=== PATIENT | male | born 1945 | race Caucasian/White ===

== ENCOUNTER 2019-12-26 17:27 | Inpatient (IN) | payer MEDICARE, OTHER ==
[~2019-12-26] VITALS: Ht 193 cm; Wt 108.9 kg
--- NOTE | 2019-12-26 13:00 | NUR ---
GOT REPORT FROM [facility] LEXIS RN FROM ICU.
--- NOTE | 2019-12-26 17:40 | NUR ---
AWAITING FOR DOCTOR NEW ORDERS.
--- NOTE | 2019-12-26 17:40 | NUR ---
PATIENT ARRIVED VIA GURNEY FROM AMBULANCE. PATIENT IS A/O X 4 ABLE TO AMBULATE TO THE BED. HEPARIN DRIP CONTINUE ON RIGHT CENTRAL LINE INTERNAL JUGULAR VEIN. VITALS ARE WITHIN NORMAL LIMITS. ORIENTED PATIENT TO ROOM. BED IS LOW POSITION, BED IS LOCKED SIDE RAILS UP X 2 FOR SAFETY. CALL LIGHT WITHIN REACH. BELONGING LIST WENT OVER IT WITH THE PATIENT AND SIGNED. ADMISSION WOUND PICTURES TAKEN. WILL CONTINUE TO MONITOR.
[2019-12-26] MEDS ORDERED: VARI50VI IM (18:40)
[2019-12-26] MEDS ORDERED: ERGO500014 PO (18:40)
[2019-12-26] MEDS ORDERED: SPIR25TA6 PO (18:40)
[2019-12-26] MEDS ORDERED: TAMS-12 PO (18:40)
[2019-12-26] MEDS ORDERED: UMEC1BLS IH (18:40)
[2019-12-26] MEDS ORDERED: COLE1TAB2 PO (18:40)
[2019-12-26] MEDS ORDERED: POTA10TA10 PO (18:40)
[2019-12-26] MEDS ORDERED: ONDA4TAB5 PO (18:40)
[2019-12-26] MEDS ORDERED: MUPI22OI7 TD (18:40)
[2019-12-26] MEDS ORDERED: BUDE3CAP8 PO (18:40)
[2019-12-26] MEDS ORDERED: GABA-532 PO (18:40)
[2019-12-26] MEDS ORDERED: ACET-868 PO (18:40)
[2019-12-26] MEDS ORDERED: ASPI-1420 PO (18:40)
[2019-12-26] MEDS ORDERED: LOPE2CAP PO (18:40)
[2019-12-26] MEDS ORDERED: ATOR40TA PO (18:40)
[2019-12-26] MEDS ORDERED: MESA500C PO (18:40)
[2019-12-26 20:00] VITALS: BP 144/75
--- NOTE | 2019-12-26 20:30 | NUR ---
PATIENT IS AWAKE A/O X 4 WITH NO SIGNS OF DISTRESS ON 2L OF NASAL CANNULA. TELEMONITOR. RIGHT CENTRAL INTERNAL JUGULAR VEIN INTACT RUNNING HEPARIN DRIP AT 1200 UNITS/HR. SAFETY MEASURES ARE APPLIED, BED IS IN LOW POSITION POSITION BED IS LOCKED, WITH SIDE RAILS UP X 2 FOR SAFETY. CALL LIGHT WITHIN REACH. WILL ENDORSE TO THE NEXT DRY SANDER.
--- NOTE | 2019-12-26 21:03 | NUR ---
RN NOTES PATIENT PULLED OUT HIS PERIPHERAL IV LINE ON RIGHT FOREARM. CONNECTED HEPARIN DRIP ON HIS RIGHT INTERNAL JUGULAR CENTRAL LINE, INTACT AND PATENT. MONITOR AND OBSERVED FOR ANY SIGNS OF ACTIVE BLEEDING.
--- NOTE | 2019-12-26 23:31 | NUR ---
MECHANIC CHIEF NOTES CALLED AND INFORMED CHANTEL MO DNP FOR ORDERS, PATIENT IS ON CONTINUOUS HEPARIN DRIP AT 1200 UNITS/HR. OBTAINED ORDER FOR STAT EKG. AWAITING FOR OTHER NEW ORDERS. HOSPITALIST CHANTEL MADE AWARE.
[2019-12-27] VITALS (11 sets, daily range): BP systolic 106–148; BP diastolic 61–78
[2019-12-27] MEDS: HEPARIN INFUSION/D5W 500 ML IV PRN ×3 (01:11→23:18)
--- NOTE | 2019-12-27 04:12 | NUR ---
RN NOTES CALLED AND SPOKE WITH CHANTEL MO DNP REGARDING ORDERS. STILL AWAITING FOR ORDERS.
[2019-12-27] MEDS ORDERED: ONDANSETRON HCL/PF 4 MG/2 ML VIAL IVP PRN (04:30)
[2019-12-27] MEDS ORDERED: ZOLPIDEM TARTRATE 5 MG TABLET PO PRN (04:30)
[2019-12-27] MEDS ORDERED: ACETAMINOPHEN 325 MG TABLET PO PRN (04:30)
[2019-12-27] MEDS ORDERED: MORPHINE SULFATE INJ 2 MG/ML DISP.SYRIN IV PRN (04:30)
[2019-12-27] MEDS ORDERED: Z GUARD REMEDY 2 OZ OINT TP PRN (04:30)
[2019-12-27 06:42] LABS: BASOPHILS % (AUTO) 0.3 % (0.0-2.0); EOSINOPHILS % (AUTO) 2.3 % (0.0-6.0); HEMATOCRIT 36 % (39-51); HEMOGLOBIN 11.9 g/dL (13.5-17.5); LYMPHOCYTES % (AUTO) 17.2 % (20.0-44.0); MEAN CORPUSCULAR HGB CONC 33 g/dl (31.0-36.0); MEAN CORPUSCULAR VOLUME 100 fL (80-96); MONOCYTES # (AUTO) 0.4 /CMM (0.1-1.30); MONOCYTES % (AUTO) 6.7 % (2.0-12.0); NEUTROPHILS # (AUTO) 4.4 /CMM (1.8-8.9); NEUTROPHILS % (AUTO) 73.5 % (43.0-81.0); PLATELET COUNT (AUTO) 200 /CMM (150-450); WHITE BLOOD COUNT (AUTO) 5.9 K/uL (4.3-11.0)
[2019-12-27 06:49] LABS: ALBUMIN 2.6 g/dL (3.4-5.0); BILIRUBIN,TOTAL 0.2 mg/dL (0.2-1.0); CALCIUM, SERUM 8.4 mg/dL (8.5-10.1); CREATININE 1.2 mg/dL (0.6-1.3); MAGNESIUM 1.7 mg/dL (1.8-2.4); POTASSIUM 4.5 mmol/L (3.5-5.1)
[2019-12-27 06:59] LABS: THYROID STIMULATING HORMONE 1.243 uIU/mL (0.358-3.74)
--- NOTE | 2019-12-27 07:39 | NUR ---
TELE/RN NOTES RECEIVED PATIENT AWAKE ALERT AND ORIENTED X4. PATIENT DENIES PAIN AT THIS TIME. NO RESPIRATORY DISTRESS NOTED. PATIENT IS FOR CARDIAC CATH AT 9 AM. PATIENT IN TELE MONITOR SR 75BPM. WILL CONTINUE TO MONITOR.
--- NOTE | 2019-12-27 07:48 | NUR ---
FOOT WORKER NOTES ALL NEEDS ATTENDED AND MET, ABLE TO REST AND SLEPT AT INTERVALS, ON CONTINUOUS HEPARIN DRIP @1200 UNITS/HR. HOLD AT 0700. SPOKE WITH [facility] ( [facility]) PATIENT IS FOR CARDIAC CATHETERIZATION/ CORONARY ANGIOGRAM. PLACED ON NPO STARTING 0500. CONSENT SIGNED, ENDORSED TO AM NURSE FOR CONTINUOUS CARE AND MANAGEMENT.
[2019-12-27] MEDS ORDERED: IV NS 0.9% 1,000 ML ONE (08:18)
[2019-12-27] MEDS ORDERED: NITROGLYCERIN ICAR 1,000 MCG/10 ML VIAL ICAR ONE (08:19)
[2019-12-27] MEDS ORDERED: IODIXANOL 150 ML IV ONE (08:19)
[2019-12-27] MEDS ORDERED: HEPARIN SODIUM, PORCINE 1,000 UNIT/ML VIAL ONE (08:19)
[2019-12-27] MEDS ORDERED: VERAPAMIL HCL IV 5 MG/2 ML VIAL ONE (08:19)
--- NOTE | 2019-12-27 08:25 | NUR ---
TELE/RN NOTES PATIENT IS INDUSTRIAL DESIGNER BY HYDRAULIC LIFT DRIVER. PATIENT IS AWAKE ALERT AND ORIENTED X 4. PATIENT DENIES PAIN. NO RESPIRATORY DISTRESS NOTED. V/S TAKEN BP 129/86 P 81 RR 20 T 98.2 SAO2 98%. PATIENT WITH CONSENT SIGN.
[2019-12-27] MEDS ORDERED: IV NS 0.9% 50 ML IV ONE (08:43)
[2019-12-27] MEDS ORDERED: LIDOCAINE HCL/PF 1% 30 ML SDV ONE (08:59)
[2019-12-27] MEDS ORDERED: MIDAZOLAM HCL 2 MG/2ML VIAL ONE (09:02)
[2019-12-27] MEDS ORDERED: FENTANYL PF 100MCG/2ML AMPUL ONE (09:02)
[2019-12-27] MEDS ORDERED: IV NS 0.9% 500 ML IV ONE (10:00)
--- NOTE | 2019-12-27 10:29 | NUR ---
TEL/RN NOTES PATIENT REFUSED FOR EKG EXPLAINED THE RISK AND BENEFITS, PATIENT VERBALIZED " HE DOESN'T NEED IT". MD IS AWARE. WILL CONTINUE TO MONITOR. Addendum: 12/27/19 at 1031 by MARLENE TREJO RN ERROR
--- NOTE | 2019-12-27 10:41 | NUR ---
0931 Started pt recovery in Railway Signal Operator Room. PT AAOx4; denies CP or SOB; R Radial TR band intact; no bleeding at this time 1032 3 ml air released from TR band; no bleeding at this time Addendum: 12/27/19 at 1114 by JOESPH JIMENEZ RN TR band released, No bleeding, pressure dressing applied. report given to Cheri JONES; romaine to 310-1 /acls
[2019-12-27] MEDS: Magnesium 1GM/D5W 100ML PREMIX 100 ML IV SCH ×2 (11:29→12:40)
--- NOTE | 2019-12-27 11:41 | NUR ---
TELE/RN NOTES PATIENT CAME BACK FROM FIREARMS INSTRUCTOR, PATIENT IS AWAKE ALERT AND ORIENTED X4. PATIENT COMPLAINED OF LITTLE BIT DIZZY. RECEIVED REPORT FROM JOESPH CONTINUE HEPARIN DRIP AT 1215 AND DISCONTINUE THE NS600 ML AT 75ML/HR ONCE IT FINISH. VITAL SIGN TAKEN AND RECORDED BP 144/72 T 97.9 P 67 SAO2 96%. WILL CONTINUE TO MONITOR.
[2019-12-27] MEDS: ASPIRIN 81 MG TAB.CHEW PO SCH (11:50)
[2019-12-27] MEDS: METOPROLOL TARTRATE 25 MG TABLET PO SCH ×2 (11:51→21:49)
[2019-12-27] MEDS ORDERED: NEUTRA PHOS 1 POWD.PACKET PO ONE (13:30)
[2019-12-27] MEDS ORDERED: HEPARIN SODIUM, PORCINE 5000 UNITS/1 ML VIAL IV ONE (14:30)
--- NOTE | 2019-12-27 15:13 | NUR ---
TELE/RN NOTES APTT 30.3 TIME 17, CURRENTLY ON HEPARIN DRIP 1200 UNITS, GIVEN BOLUS 6000 UNITS PLUS INCREASE RATE BY 300 UNITS PER HOUR = HEPARIN DRIP 1500 UNITS/HOUR, PER HOSPITAL PROTOCOL. NEXT APTT AT 2100.
--- NOTE | 2019-12-27 17:42 | NUR ---
TELE/RN NOTES PHILLY FORD (ORACLE HRMS DEVELOPER) IS AWARE TO RECONCILE THE HOME MEDICATION.
[2019-12-27] MEDS: MESALAMINE 400 MG CAP PO SCH (18:30)
--- NOTE | 2019-12-27 19:21 | NUR ---
TELE/RN CLOSING NOTES PATIENT IS AWAKE, ALERT AND ORIENTED X4. PATIENT DENIES PAIN AT THIS TIME. PATIENT IN ROOM AIR. PATIENT IN NO RESPIRATORY DISTRESS NOTED AT THIS TIME. TELE MONITOR IN PLACE READS AT SR WITH BBB 63BPMBPM. IV ACCESS AT RIGHT INTERNAL JUGULAR CENTRAL LINE WITH CONTINUOS IV HEPARIN DRIP AT 1500ML/HR ON AND INFUSING WELL. ESCALATOR MECHANIC DONE TODAY. SEEN AND EXAMINED BY MD WITH ORDERS MADE AND CARRIED OUT. ALL DUE MEDICATION WAS ORDER. SAFETY PRECAUTION IN PLACED. BED IN LOWEST POSITION AND LOCKED. SIDE RAILS UP X2. CALL LIGHT LIGHT IS WITHIN REACH. WILL ENDORSED TO FRACTIONATING STILL OPERATOR FOR KENYETTA..
--- NOTE | 2019-12-27 19:51 | NUR ---
AUTO HAULER: Received report from delia santana at 1915. Pt a/o x4,calm and cooperative, pleasant, denies any chest dionna or discomfort at this time. Received on heparin drip at 1500 u/hr equivalent to 30ml/hr aptt 30.3, following acs protocol. S/P left heart cath 12/27/2019, right radial area covered with pressured dressing, dressing c/d/i, no active bleeding noted. pt denies any pain or discomfort, denies any tingling or numbness on area. pt able to move and wiggle arms and hands, good capillary refill noted, palpable and intact radial pulses. Discussed plan of care, awaiting for Dr Gotti to schedule CABG. Right IJ, tlc patent and flushing well, good blood return noted, easily flushes well with normal saline. noted dry blood on dressing, no active bleeding noted. Safety precautions for fall initiated, call light in reach, will continue monitoring pt.
--- NOTE | 2019-12-27 20:12 | NUR ---
RN notes: PT on sinus rhythm with 1st degree avblock and bbb hr 60
--- NOTE | 2019-12-27 21:03 | NUR ---
rn notes: phleb came to draw blood, sched for aptt at 2100.
--- NOTE | 2019-12-27 21:38 | NUR ---
RN NOTES/APTT: APTT PENDING RESULT.
[2019-12-27] MEDS: ATORVASTATIN 40 MG TABLET PO SCH (21:48)
[2019-12-27] MEDS: TAMSULOSIN 0.4 MG CAP.SR.24H PO SCH (21:48)
--- NOTE | 2019-12-27 21:50 | NUR ---
RN NOTES/LOPRESSOR: DR MO IN THE UNIT, RELAYED PT'S VS RESULT, S/P HEART CATH 12/26, PER MD OKAY TO ADMINISTER MEDICATION/LOPRESSOR ALTHOUGH HR 58. SHIRT OPERATOR AWARE.
--- NOTE | 2019-12-27 21:54 | NUR ---
RN NOTES/APTT: still pending result of aptt.
--- NOTE | 2019-12-27 22:18 | NUR ---
RN NOTES/APTT CRITICAL LAB: RECEIVED CRITICAL LAB RESULT FOR PTT REPORTED BY FABRICIO FROM LAB, APTT 113.8, READ BACK AND VERIFIED. PER HEPARIN PROTOCOL TO HOLD INFUSION FOR 60MINS AND DECREASE RATE BY 300 UNITS/HR. THEN NEXT PTT DRAW AFTER 6HRS. CURRENT RATE IS 1500 U/HR. 1500 UNITS/HR - 300 UNITS/HR EQUALS 1200 U/HR, WHICH IS EQUIVALENT TO 24 ML/HR. HEPARIN DRIP INFUSION HELD AT 2210, WILL RESTART AT 2310 AT NEW RATE OF 1200 U/HR. NEXT PTT DRAW IS 12/28/[address] MO NOTIFIED OF CRITICAL LAB RESULT FOR APTT, ORDER TO JUST CONTINUE FOLLOWING HEPARIN ACS PROTOCOL. RAC SPECIALIST AWARE.
--- NOTE | 2019-12-27 23:18 | NUR ---
rn notes/heaprin drip restarted: Heparin drip re-started at 2310 following acs heparin protocol, new rate 1200 u/hr equivalent is 24 ml/hr. APTT 113.8. no s/s of active bleeding noted. Cosigned/verified with another rn yanna gutierrez
[2019-12-28] VITALS (7 sets, daily range): BP systolic 96–124; BP diastolic 55–68
[2019-12-28] MEDS: HEPARIN INFUSION/D5W 500 ML IV PRN (05:09)
--- NOTE | 2019-12-28 05:10 | NUR ---
rn notes: escalation engineer currently in the unit to draw ptt.
--- NOTE | 2019-12-28 05:20 | NUR ---
rn notes: loom operator finished drawing blood for pt inr, ptt.
--- NOTE | 2019-12-28 06:17 | NUR ---
RN NOTES/PTT: PENDING PTT RESULT.
[2019-12-28 06:33] LABS: BASOPHILS % (AUTO) 0.6 % (0.0-2.0); EOSINOPHILS % (AUTO) 5.1 % (0.0-6.0); HEMATOCRIT 37 % (39-51); HEMOGLOBIN 12.4 g/dL (13.5-17.5); LYMPHOCYTES # (AUTO) 1.8 /CMM (0.8-4.8); LYMPHOCYTES % (AUTO) 32.6 % (20.0-44.0); MEAN CORPUSCULAR HGB CONC 33 g/dl (31.0-36.0); MEAN CORPUSCULAR VOLUME 100 fL (80-96); MONOCYTES # (AUTO) 0.5 /CMM (0.1-1.30); MONOCYTES % (AUTO) 8.2 % (2.0-12.0); NEUTROPHILS % (AUTO) 53.5 % (43.0-81.0); PLATELET COUNT (AUTO) 212 /CMM (150-450); RED BLOOD CELL COUNT(AUTO) 3.75 MIL/uL (4.5-6.0); WHITE BLOOD COUNT (AUTO) 5.6 K/uL (4.3-11.0)
[2019-12-28 06:42] LABS: CALCIUM, SERUM 8.8 mg/dL (8.5-10.1); CREATININE 1.1 mg/dL (0.6-1.3); MAGNESIUM 1.9 mg/dL (1.8-2.4); PHOSPHORUS 2.9 mg/dL (2.5-4.9); POTASSIUM 4.1 mmol/L (3.5-5.1)
--- NOTE | 2019-12-28 06:45 | NUR ---
rn notes: awaiting ptt result.
--- NOTE | 2019-12-28 07:18 | NUR ---
End of shift report: Pt remains cooperative, calm, denies any chest pain or discomfort throughout the shift. No active bleeding noted. Right ij tlc remains patent and flushing well, infusing with heparin drip at 1200 u/hr, still awaiting for next ptt result. No episode of loose bm happened throughout the shift. Remains sinus bradycardia with bbb hr 55. PLAN OF CARE: Awaiting for Dr Gotti to evaluate pt for plan for CABG. Vs remains stable, needs attended, safety precautions for fall remains engaged, call light in reach, will endorse to day rn for continuity of care.
--- NOTE | 2019-12-28 07:25 | NUR ---
SEASONING MIXER NOTES PATIENT RECEIVED IN BED SLEEPING, ON ROOM AIR WITH NO SIGNS OF RESPIRATORY DISTRESS PRESENT AT THIS TIME, WITH EVEN NON-LABORED BREATHING, AND NO SOB NOTED. PATIENT ON DRAPERY INSPECTOR, SINUS HELENE 54. PATIENT SKIN WARM AND DRY. RIGHT IJ IV ACCESS INTACT AND PATENT CURRENTLY INFUSING 1200U/hr of HEPARIN DRIP. PATIENT PRESENTS WITH NO SIGNS OF PAIN OR DISCOMFORT AT THIS TIME. SAFETY PRECAUTIONS IMPLEMENTED WITH BED LOCKED, BED IN THE LOWEST POSITION, BILATERAL SIDE RAILS UP, BED ALARM ON, AND CALL LIGHT WITHIN EASY REACH OF THE PATIENT. WILL CONTINUE TO MONITOR PATIENT.
[2019-12-28] MEDS: GABAPENTIN 100 MG CAPSULE PO SCH ×2 (08:20→16:18)
[2019-12-28] MEDS: FLUTICASONE/VILANTEROL 1 EACH BLST.W.DEV IH SCH (08:20)
[2019-12-28] MEDS: METOPROLOL TARTRATE 25 MG TABLET PO SCH ×2 (08:21→21:26)
[2019-12-28] MEDS: MESALAMINE 400 MG CAP PO SCH ×3 (08:21→16:19)
[2019-12-28] MEDS: ASPIRIN 81 MG TAB.CHEW PO SCH (08:21)
[2019-12-28] MEDS: COLESTIPOL 1 GM PO SCH ×2 (09:41→16:18)
--- NOTE | 2019-12-28 18:37 | NUR ---
CONFIGURATION TECHNICIAN NOTES PATIENT IN BED RESTING COMFORTABLY AND WATCHING TV. ALERT AND ORIENTED X 4. ON ROOM AIR WITH NO SIGNS OF RESPIRATORY DISTRESS, WITH NON-LABORED EVEN BREATHING. PATIENT SKIN WARM AND DRY TO TOUCH. ON WET PROCESS OPERATOR SINUS RHYTHM 78. IV ACCESS INTACT AND PATENT CURRENTLY INFUSING HEPARIN DRIP AT 1200UNITS/HR. PATIENT SKIN KEPT CLEAN AND DRY. MET ALL OF PATIENT'S NEEDS. PATIENT PRESENTS WITH NO SIGNS OF PAIN OR DISCOMFORT. SAFETY PRECAUTIONS IMPLEMENTED WITH BED LOCKED, BED IN THE LOWEST POSITION, BILATERAL SIDE RAILS UP, AND CALL LIGHT WITHIN EASY REACH OF THE PATIENT. WILL ENDORSE PLAN OF CARE TO UPCOMING NURSE.
--- NOTE | 2019-12-28 19:59 | NUR ---
TELE/RN OPENING NOTE Patient awake in bed, a/o x4, ambulatory. Face is symmetrical, tongue midline. No tracheal deviation. No JVD. Patient on room air, breath sounds even, clear, unlabored. No respiratory distress or SOB noted. Tele monitor NSR in the 70s. Skin is warm, pink, dry appropriate for ethnicity. IV RIJ patent and intact, running 1200 units/hr. No signs of redness or infiltration. Bowel sounds normoactive in all quadrants. Abdomen round, soft, non-tender. Patient is continent, void via urinal. Bed in low position, wheels locked, side rails up x2, call light within reach.
[2019-12-28] MEDS: ATORVASTATIN 40 MG TABLET PO SCH (21:25)
[2019-12-28] MEDS: TAMSULOSIN 0.4 MG CAP.SR.24H PO SCH (21:26)
[2019-12-29] VITALS (8 sets, daily range): BP systolic 112–147; BP diastolic 58–75
[2019-12-29] MEDS: HEPARIN INFUSION/D5W 500 ML IV PRN (04:01)
--- NOTE | 2019-12-29 06:48 | NUR ---
TELE/RN CLOSING NOTE Patient awake in bed, a/o x4, ambulatory. Patient on room air, breath sounds even, clear, unlabored. No respiratory distress or SOB noted. Tele monitor NSR in the 60s. Skin is warm, pink, dry appropriate for ethnicity. IV RIJ patent and intact, running heparin 1200 units/hr. No signs of redness or infiltration. Bowel sounds normoactive in all quadrants. Abdomen round, soft, non-tender. Patient is continent, void via urinal, 850 ml clear, yellow, urine. Bed in low position, wheels locked, side rails up x2, call light within reach.
[2019-12-29 06:56] LABS: BASOPHILS % (AUTO) 0.4 % (0.0-2.0); EOSINOPHILS % (AUTO) 3.7 % (0.0-6.0); HEMATOCRIT 37 % (39-51); HEMOGLOBIN 12.1 g/dL (13.5-17.5); LYMPHOCYTES # (AUTO) 1.8 /CMM (0.8-4.8); LYMPHOCYTES % (AUTO) 29.6 % (20.0-44.0); MEAN CORPUSCULAR HGB CONC 33 g/dl (31.0-36.0); MEAN CORPUSCULAR VOLUME 100 fL (80-96); MONOCYTES # (AUTO) 0.4 /CMM (0.1-1.30); MONOCYTES % (AUTO) 7.5 % (2.0-12.0); NEUTROPHILS # (AUTO) 3.5 /CMM (1.8-8.9); NEUTROPHILS % (AUTO) 58.8 % (43.0-81.0); PLATELET COUNT (AUTO) 221 /CMM (150-450); RED BLOOD CELL COUNT(AUTO) 3.68 MIL/uL (4.5-6.0)
[2019-12-29 07:22] LABS: CALCIUM, SERUM 8.6 mg/dL (8.5-10.1); CREATININE 1.2 mg/dL (0.6-1.3)
[2019-12-29] MEDS ORDERED: [UNRECOGNIZED DRUG - CODE] IV (08:52)
[2019-12-29] MEDS ORDERED: METO25TA20 PO (08:52)
--- NOTE | 2019-12-29 08:52 | NUR ---
rn notes per aptt 38.9 increased drip for 1400, administered scheduled medication, patient will discharge to the [facility] fo higher acuity care.
[2019-12-29] MEDS: ASPIRIN 81 MG TAB.CHEW PO SCH (08:55)
[2019-12-29] MEDS: FLUTICASONE/VILANTEROL 1 EACH BLST.W.DEV IH SCH (08:55)
[2019-12-29] MEDS: METOPROLOL TARTRATE 25 MG TABLET PO SCH ×2 (08:56→21:04)
[2019-12-29] MEDS: COLESTIPOL 1 GM PO SCH ×2 (08:57→17:02)
[2019-12-29] MEDS: GABAPENTIN 100 MG CAPSULE PO SCH ×2 (08:57→17:04)
[2019-12-29] MEDS: MESALAMINE 400 MG CAP PO SCH ×3 (08:57→16:49)
--- NOTE | 2019-12-29 09:03 | NUR ---
RN Notes Discharge diagnosis <CAD, recent NSTEMI, s/p PCI, Recent UTI with septic shock - completed antibiotics, Hypomagnesemia -improved, Diabetes mellitus type 2, COPD, not in acute exacerbation, Dyslipidemia, Laura's thyroiditis, HSV, GERD, BPH, Osteoarthritis, Crohns, Hx of DVT, on coumadin, Hx of CVA, Hx of melanoma and squamous cell carcinoma, Tobacco use> Disposition <02 [facility] TO ANOTHER ACUTE HOS> Discharge instructions <Transfer to [facility] for CABG with Dr. Gotti, Continue heparin drip>
--- NOTE | 2019-12-29 15:00 | NUR ---
RN NOTES APTT 55.6 AT THIS TIME, 1400 HEPARIN IV DRIP, NO CHANGE.
[2019-12-29] MEDS ORDERED: ERGOCALCIFEROL (VITAMIN D 2) 50,000 UNIT CAPSULE PO SCH (18:00)
--- NOTE | 2019-12-29 18:30 | NUR ---
rn notes patient stable received scheduled medication, infusing hepain 1400ml/hri REJ intact. patient ambulatory self care, using bathroom, v/s wnl. endorsed oncoming nurse follow plan of care.
--- NOTE | 2019-12-29 19:49 | NUR ---
TELE/RN OPENING NOTE Patient awake in bed, a/o x4, ambulatory. Face is symmetrical, tongue midline. No tracheal deviation. No JVD. Patient on room air, breath sounds even, clear, unlabored. No respiratory distress or SOB noted. Tele monitor NSR with bundle branch block and PACs. in the 70s. Skin is warm, pink, dry appropriate for ethnicity. IV RIJ patent and intact, running 1400 units/hr. No signs of redness or infiltration. Bowel sounds normoactive in all quadrants. Abdomen round, soft, non-tender. Patient is continent, void via urinal. Bed in low position, wheels locked, side rails up x2, call light within reach.
[2019-12-29] MEDS: ATORVASTATIN 40 MG TABLET PO SCH (21:03)
[2019-12-29] MEDS: TAMSULOSIN 0.4 MG CAP.SR.24H PO SCH (21:04)
[2019-12-30] VITALS (8 sets, daily range): BP systolic 124–143; BP diastolic 60–80
[2019-12-30] MEDS: HEPARIN INFUSION/D5W 500 ML IV PRN ×2 (00:13→18:24)
--- NOTE | 2019-12-30 05:35 | NUR ---
TELE/RN CLOSING NOTE Patient awake in bed, a/o x4, ambulatory. Patient on room air, breath sounds even, clear, unlabored. No respiratory distress or SOB noted. Tele monitor NSR with bundle branch block and PACs. in the 70s. Skin is warm, pink, dry appropriate for ethnicity. IV RIJ patent and intact, running 1400 units/hr heparin gtt. No signs of redness or infiltration. Bowel sounds normoactive in all quadrants. Abdomen round, soft, non-tender. Patient is continent, void via urinal. Bed in low position, wheels locked, side rails up x2, call light within reach.
--- NOTE | 2019-12-30 05:50 | NUR ---
transfer of care note received patient in bed. on room air. no s/s resp distress. tele monitor reads sinus rhythm hr in 70s. iv access in IV RIJ running 1400 units/hr heparin. bed is low and locked, hob flat, side rials up x2, kaia light within reach.w ill continue to monitor
--- NOTE | 2019-12-30 07:39 | NUR ---
television receiver analyzer closing note patient in bed. in no distres. tele monitor reads sinus rhythm. iv access maintianed in IV RIJ still running 1400 units/hr heparin. bed remains low and locked, hob flat, side rials up x2, kaia light within reach. will endorse to next shift.
--- NOTE | 2019-12-30 08:00 | NUR ---
RN NOTES RECEIVED PATIENT IN THE BD A/O X4, TELE SR-64 WITH BUNDLE OF BRANCH BLOCKAGE, WAITING FOR TRANSFER TO THE ACUTE HOSPITAL FOR HIGH ACUITY CARE. PATIENT ON HEPARIN DRIP 1400 UNITS APTT 56.3 LAB VALUE, NO CHANGES, NEXT APTT SCHEDULED 12/30/499. PATIENT REFUSED PAIN, ADMINISTERED SCHEDULED MEDICATION, V/S WNL. PATIENT AMBULATORY SELF CARE. IV ACCESS ON RIJ INTACT. CALL LIGHT WITHIN TO REACH. CONTINUED MONITORING.
[2019-12-30] MEDS: GABAPENTIN 100 MG CAPSULE PO SCH ×2 (08:22→16:54)
[2019-12-30] MEDS: COLESTIPOL 1 GM PO SCH ×2 (08:24→16:53)
[2019-12-30] MEDS: MESALAMINE 400 MG CAP PO SCH ×3 (08:24→16:50)
[2019-12-30] MEDS: ASPIRIN 81 MG TAB.CHEW PO SCH (08:25)
[2019-12-30] MEDS: METOPROLOL TARTRATE 25 MG TABLET PO SCH ×2 (08:25→21:00)
[2019-12-30] MEDS: FLUTICASONE/VILANTEROL 1 EACH BLST.W.DEV IH SCH (08:26)
--- NOTE | 2019-12-30 14:17 | NUR ---
esther hook patient resting in the bed , continued heparin drip 1400 u/hr on RIJ area intact. v/s stable, administered scheduled medication. continued monitoring.
--- NOTE | 2019-12-30 18:26 | NUR ---
RN NOTES PATIENT STABLE STARTED NEW HEPARIN BAG 500 ML. RATE IS 28ML/HR, NO BLEEDING NOTED, STABLE, NO ACUTE RESPIRATORY DISTRESS, AMBULATORY SELF CARE. ENDORSED ONCOMING NURSE FOLLOW PLAN OF CARE.
--- NOTE | 2019-12-30 19:28 | NUR ---
TELE/RN OPENING NOTE Patient awake in bed, a/o x4, ambulatory. Patient on room air, breath sounds even, clear, unlabored. No respiratory distress or SOB noted. Tele monitor NSR in the 70s. Skin is warm, pink, dry appropriate for ethnicity. IV RIJ patent and intact, running 1400 units/hr. No signs of redness or infiltration. Bowel sounds normoactive in all quadrants. Abdomen round, soft, non-tender. Patient is continent, void via urinal. Bed in low position, wheels locked, side rails up x2, call light within reach.
[2019-12-30] MEDS: ATORVASTATIN 40 MG TABLET PO SCH (21:00)
[2019-12-30] MEDS: TAMSULOSIN 0.4 MG CAP.SR.24H PO SCH (21:01)
[2019-12-31] VITALS: BP 125/63
[2019-12-31 02:13] VITALS: BP 143/80
[2019-12-31 04:00] VITALS: BP 142/60
--- NOTE | 2019-12-31 07:30 | NUR ---
RN Opening note Received patient in bed, AO x 4, able to responds all stimuli, Does no c/o pain or distress. Patient is on heparin drip, PTT 61,8 does no change drip rate, clarified with pharmacy and documented on his chat with MD order. Respiratory even and unlabored on room air, skin is warm to touch, kept clean/dry. Keep in bed locked with elevated HOB for ensure airway and aspiration precaution. Call light within reach, will continue to monitor.
--- NOTE | 2019-12-31 07:37 | NUR ---
TELE/RN CLOSING NOTE Patient asleep in bed, a/o x4. Patient on room air, breath sounds even, clear, unlabored, O2 sat 96%. No respiratory distress or SOB noted. Tele monitor NSR with BBB in the 70s. Skin is warm, pink, dry appropriate for ethnicity. IV RIJ patent and intact, running 1400 units/hr. No signs of redness or infiltration. Patient is continent, void via urinal. Bed in low position, wheels locked, side rails up x2, call light within reach.
[2019-12-31 08:00] VITALS: BP 144/65
[2019-12-31] MEDS: ASPIRIN 81 MG TAB.CHEW PO SCH (09:34)
[2019-12-31 09:35] VITALS: BP 144/65
[2019-12-31] MEDS: METOPROLOL TARTRATE 25 MG TABLET PO SCH (09:35)
[2019-12-31] MEDS: MESALAMINE 400 MG CAP PO SCH (09:35)
[2019-12-31] MEDS: COLESTIPOL 1 GM PO SCH (09:35)
[2019-12-31] MEDS: GABAPENTIN 100 MG CAPSULE PO SCH (09:37)
--- NOTE | 2019-12-31 11:30 | NUR ---
Patient going transfer to [facility], given report Sulma/ROBERT, Pt is on heparin drip, 3 advertising inserter picked up patient with heparin drip. Patient in stable condition.
== END 2019-12-31 11:30 | disposition short-term general hospital (02) | DRG 280 ==
LOC: TELE 17:27 → EDSEX 17:27 → MED 12-29 08:54 → TELE 12-29 11:06
PROVIDERS: ADMIT Nurse Practitioner Acute Care; ATTEND Nurse Practitioner Acute Care
PROC: 4A023N7 Measurement of Cardiac Sampling and Pressure, Left Heart, Percutaneous Approach (ICD-10-PCS; principal; 2019-12-26)
PROC: B211YZZ Fluoroscopy of Multiple Coronary Arteries using Other Contrast (ICD-10-PCS; 2019-12-26)
DX: I25.10 Atherosclerotic heart disease of native coronary artery without angina pectoris (principal); I21.4 Non-ST elevation (NSTEMI) myocardial infarction; N17.0 Acute kidney failure with tubular necrosis; N39.0 Urinary tract infection, site not specified; E87.1 Hypo-osmolality and hyponatremia; K50.90 Crohn's disease, unspecified, without complications; I12.9 Hypertensive chronic kidney disease with stage 1 through stage 4 chronic kidney disease, or unspecified chronic kidney disease; K21.9 Gastro-esophageal reflux disease without esophagitis; N18.9 Chronic kidney disease, unspecified; Z98.61 Coronary angioplasty status; Z87.442 Personal history of urinary calculi; Z86.73 Personal history of transient ischemic attack (TIA), and cerebral infarction without residual deficits; Z86.718 Personal history of other venous thrombosis and embolism; Z85.820 Personal history of malignant melanoma of skin; N40.0 Benign prostatic hyperplasia without lower urinary tract symptoms; Z98.890 Other specified postprocedural states; E11.22 Type 2 diabetes mellitus with diabetic chronic kidney disease; E78.5 Hyperlipidemia, unspecified; E83.42 Hypomagnesemia; I25.2 Old myocardial infarction; E86.1 Hypovolemia; E06.3 Autoimmune thyroiditis; J44.9 Chronic obstructive pulmonary disease, unspecified; M19.90 Unspecified osteoarthritis, unspecified site; Z80.9 Family history of malignant neoplasm, unspecified; Z83.3 Family history of diabetes mellitus; Z79.899 Other long term (current) drug therapy; Z72.0 Tobacco use; B00.9 Herpesviral infection, unspecified; Z79.01 Long term (current) use of anticoagulants
CPT/HCPCS: 36415; 71045-TC; 80048-TC; 80053-TC; 80061-TC; 83735-TC; 84100-TC; 84443-TC; 85025-TC; 85610-TC; 85730-TC; 87081-TC; 97116-TC; 97530-TC; C1887; G0378; G0500; J1644; J2250; J2405; J3010; J3475; J3490; J7040; Q9967